=== PATIENT | male | born 1985 | race Caucasian/White ===

== ENCOUNTER 2019-09-19 12:05 | Inpatient (IN) ==
[2019-09-19] MEDS ORDERED: NS 1,000 ML IV ONE ×2 (12:30→15:01)
[2019-09-19 12:57] LABS: BASO# 0.05 X1000 (0.0-0.2); BASO% 0.3 % (0.0-0.8); HEMATOCRIT 50.9 % (42.0-52.0); HEMOGLOBIN 18.8 g/dL (14.0-18.0); IMM GRAN% 0.7 % (0.0-0.5); LYMPH# 1.26 X1000 (1.2-3.4); LYMPH% 8.5 % (20.5-51.1); MCH 30.4 PG (27-31); MCHC 36.9 g/dL (33-37); MCV 82.2 FL (81-99); MONO# 0.91 X1000 (0.11-0.59); MONO% 6.2 % (1.7-9.3); NEUT# 12.42 X1000 (1.4-6.5); NEUT% 84.3 % (42.2-75.2); PLT 198 X1000 (130-400); RBC 6.19 XMIL (4.7-6.1); RDW 14.3 % (11.5-14.5); WBC 14.74 X1000 (4.8-10.8)
[2019-09-19] MEDS ORDERED: ATIVAN ONE (13:20)
--- NOTE | 2019-09-19 13:24 | Diag Imaging Result Doc PS360 ---
EXAM: CHEST-PORTABLE INDICATION: fever TECHNIQUE: One view COMPARISON: None. FINDINGS: There is a small granuloma at the right lower lung zone. The lungs are grossly clear, otherwise. There is no discrete pleural fluid collection or pneumothorax. The cardiomediastinal silhouette and central vasculature are grossly unremarkable. IMPRESSION: No evidence of acute pathology by plain radiograph. Electronically signed by Baldemar Barnhart 09/19/2019 1:22 PM
[2019-09-19 13:29] LABS: ALBUMIN 5.2 g/dL (3.5-5.0); ALKALINE PHOSPHATASE 91 U/L (32-122); BUN 86 mg/dL (8-22); CALCIUM 9.1 mg/dL (8.8-10.2); CK PROFILE 432 U/L (24-204); COSMO 282; CREATININE 9.5 mg/dL (0.7-1.2); ESTIMATED GFR 6; GLUCOSE 244 mg/dL (70-104); GOT 33 U/L (10-34); GPT 18 U/L (10-44); TOTAL BILIRUBIN 1.44 mg/dL (0.20-1.00); TOTAL PROTEIN 7.8 g/dL (6.3-8.3)
[2019-09-19] MEDS ORDERED: ATIVAN IV ONE ×2 (13:33→16:08)
[2019-09-19 13:52] LABS: ALLEN TEST YES; BLOOD TYPE ARTERIAL; HCO3-(ACT) 31.2 mmoll (20.0-26.0); METHB 0.7 % (0.0-1.5); O2(CT) 24.3 mL/dL (15.0-23.0); O2HB 97.8 % (95.0-99.0); PCO2(98.6) 50 mmHg (35-45); PO2(98.6) 284 mmHg (60-100); SAMPLE BLOOD; SAO2 100.6 % (95.0-100.0); THB 17.2 g/dL (11.5-17.4); pH(98.6) 7.44 (7.35-7.45)
[2019-09-19 13:54] LABS: MODALITY NRB
[2019-09-19 14:11] LABS: URINE SOURCE CATH
[2019-09-19 14:17] LABS: BILIRUBIN URINE SMALL (NEGATIVE); BLOOD URINE MODERATE (NEGATIVE); COLOR ORANGE; GLUCOSE URINE TRACE mg/dL (NEGATIVE); KETONE URINE NEGATIVE (NEGATIVE); LEUKOCYTES URINE NEGATIVE (NEGATIVE); NITRITE URINE NEGATIVE (NEGATIVE); PH URINE 5.5; PROTEIN URINE 200 mg/dL (NEGATIVE); SP GRAVITY URINE 1.019; TURBIDITY URINE TURBID (CLEAR); UROBILINOGEN URINE 2 mg/dL (NORMAL)
[2019-09-19 14:40] LABS: UR AMPHETAMINES QUAL NONE DETECTED (NONE DETECT); UR BARBITUATES QUAL NONE DETECTED (NONE DETECT); UR BENZODIAZEPIN QUAL NONE DETECTED (NONE DETECT); UR CANNABINOIDS QUAL NONE DETECTED (NONE DETECT); UR COCAINE QUAL NONE DETECTED (NONE DETECT); UR METHADONE QUAL NONE DETECTED (NONE DETECT); UR OPIATES QUAL NONE DETECTED (NONE DETECT); UR OXYCODONE QUAL NONE DETECTED (NONE DETECT); UR PCP QUAL NONE DETECTED (NONE DETECT)
[2019-09-19 14:44] LABS: CHLORIDE < 60 mmol/L (98-107); CK INDEX 0.7 (0.0-2.5); CK-MB 2.84 ng/mL (0.0-5.0); POTASSIUM 2.7 mmol/L (3.5-5.1); SODIUM 123 mmol/L (136-145); TCO2 27 mmol/L (25-35)
[2019-09-19 15:01] LABS: UR EPITHELIAL CELLS <10 /HPF (<10); URINE BACTERIA NEGATIVE /HPF; URINE CASTS NONE SEEN; URINE CRYSTALS NONE SEEN; URINE SMALL ROUND CELLS NONE SEEN; URINE WBC TNTC /HPF (<10); URINE YEAST NONE SEEN
[2019-09-19 15:08] LABS: ACETAMINOPHEN < 1.2 ug/mL (10-30); SALICYLATES < 3.00 mg/dL (3-10)
[2019-09-19] MEDS ORDERED: POTASSIUM CHLORIDE 40 MEQ/SWI 40 MEQ/100 ML IVPB IV ONE (15:12)
[2019-09-19 15:27] LABS: FREE T4 1.51 ng/dL (0.93-1.70); TSH 2.78 uIUmL (0.27-4.20)
--- NOTE | 2019-09-19 15:45 | PROVIDER DOCUMENTATION ---
This chart was entered by Yolette Barnhart Scribe, acting as scribe for Sebastian Alvarado CRNP. [id number] Abuse/Overdose - General Chief Complaint: Altered Mental Status Stated Complaint: OVERDOSE Time Seen by Provider: 09/19/19 12:10 Source: EMS Allergies/Adverse Reactions: Allergies Allergy/AdvReac Type Severity Reaction Status Date / Time acetaminophen Allergy NAUSEA Verified 09/19/19 13:00 Home Medications: Home Medication List Medication Instructions Recorded Confirmed Last Taken Type NK [No Home Medications] 09/19/19 09/19/19 Unknown History - History of Present Illness-Drug/Alcohol Nature of Presenting Problem: 34 yowm presents to er w/ems w/cc OD on unk amt of delsym and ZZZQuil. 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 ems sts pt does heroin and meth, family denies drug use and pt sts has not used in "long time." pt father sts he has been taking delsym and zzzquil for 3 days, grandmother sts pt has n/v and intermittent fever, and works at [email or web address], has not left bed in 7 days. ems found empty beer and wine bottles in pt's bedroom. This episode of drinking or use began:: just prior to arrival Severity: reports: moderate Situational problems related to:: reports: N/A Psychiatric Complaints: reports: agitated, altered mental status, hostile Associated Symptoms: reports: fever/chills Any injuries associated with this episode of intoxication?: No - Substance Abuse Substance Use: reports: other (family denies pt drug use, pt sts he has not used in "long time" and ems sts pt uses heroin and meth) - Overdose List substance(s) ingested.: ZZZQuil and Delsym Review of Systems - Adult - REVIEW OF SYSTEMS - ADULT ROS:: unobtainable per condition Constitutional: reports: see HPI, fever. denies: chills, fatique Eyes: reports: no symptoms reported Ears, Nose, Mouth & Throat: reports: no symptoms reported Cardiovascular: reports: no symptoms reported Respiratory: reports: no symptoms reported Gastrointestinal: reports: no symptoms reported Genitourinary: reports: no symptoms reported Musculoskeletal: reports: no symptoms reported Integumentary: reports: no symptoms reported Neurological: reports: no symptoms reported Psychiatric: reports: see HPI, other (OD) Endocrine: reports: no symptoms reported Hematologic/Lymphatic: reports: no symptoms reported Allergic/Immunologic: reports: no symptoms reported All Other Systems: Reviewed and Negative Past History - Adult - PAST MEDICAL HISTORY-ADULT Review of Records: reports: Nursing Assessment Review, Medications Reviewed, Social history reviewed & non-contributory. Major Childhood Illnesses: reports: denies history Cardiovascular: reports: denies history Respiratory: reports: denies history Gastrointestinal: reports: denies history Obstetrical/Gynecological: reports: denies history Genitourinary: reports: denies history Musculoskeletal: reports: denies history Neurological: reports: denies history Endocrine/Immune: reports: denies history Other Conditions: reports: denies history - PRIOR SURGERIES/PROCEDURES Surgical/Procedure History: reports: none - IMMUNIZATION STATUS Childhood Immunizations: See Nurse Assessment Flu Vaccine: See Nurse Assessment - FAMILY HISTORY Family History: reviewed, not pertinent - SOCIAL HISTORY Smoking: cigarettes, greater than 1 pack/day Provider spent 3-5 mins advising pt. on dangers of tobacco.: Discussed manners to quit use, and f/u contacts for add'l counseling. Substance Use: none/never Living Situation: family (grandmother) Physical Exam-General - PHYSICAL EXAM-ADULT Initial Vital Signs Reviewed: Yes - CONSTITUTIONAL General Appearance: mild distress, thin, other (AMS). negative: appears well, alert, no apparent distress - EYES Eyes: other (bilat pupils dilated). negative: PERRL/EOMI, sclera injected, scleral icterus - HEAD, EARS, NOSE, MOUTH & THROAT HENMT: normocephalic/atraumatic, moist mucous membranes - NECK Neck: non-tender, full range of motion, supple, normal inspection - RESPIRATORY Respiratory: chest non-tender, lungs clear, normal breath sounds - CARDIOVASCULAR Cardiovascular: normal peripheral pulses, tachycardia. negative: regular rate, rhythm - GASTROINTESTINAL (ABDOMEN) Abdominal Exam: non tender, soft - MUSCULOSKELETAL Back Exam: normal inspection Extremity: normal range of motion, non-tender, normal inspection - SKIN Integumentary: normal color, normal turgor, warm/dry, ecchymosis (bruising to bilateral lower extremities) - NEUROLOGIC Neurologic: other (AMS) - PSYCHIATRIC Psych/Mental Status: disoriented x 3. negative: normal mood/affect, normal thought content, normal thought process, oriented x 3 Progress - PLAN OF CARE/RESULTS Progress/Plan/Lab Results: Vital Signs - 8 hr 09/19/19 12:22 09/19/19 13:00 09/19/19 13:15 Temperature 98.9 F Pulse Rate 125 H 109 H 117 H Respiratory Rate 16 16 20 Blood Pressure 94/70 127/111 138/100 O2 Sat by Pulse Oximetry 98 98 97 09/19/19 13:40 09/19/19 14:00 09/19/19 14:35 Temperature Pulse Rate 108 H 112 H Respiratory Rate 18 17 Blood Pressure 133/110 119/74 O2 Sat by Pulse Oximetry 99 100 100 09/19/19 15:00 09/19/19 15:30 09/19/19 16:00 Temperature Pulse Rate 114 H 121 H 125 H Respiratory Rate 20 13 21 Blood Pressure 122/107 121/106 102/97 O2 Sat by Pulse Oximetry 95 98 98 09/19/19 16:16 09/19/19 16:45 09/19/19 16:47 Temperature Pulse Rate 114 H 113 H 114 H Respiratory Rate 21 18 20 Blood Pressure 116/95 136/91 138/117 O2 Sat by Pulse Oximetry 99 100 100 09/19/19 16:57 Temperature 100.6 F H Pulse Rate Respiratory Rate Blood Pressure O2 Sat by Pulse Oximetry 09/19/19 12:53 Influenza Screen - Final Nasopharyngeal 09/19/19 12:53 Group A Strep Rapid Antigen - Final Throat Laboratory Results - last 24 hr 09/19/19 09/19/19 09/19/19 12:30 12:30 12:30 WBC RBC Hgb Hct MCV MCH MCHC RDW Std Deviation Plt Count MPV Immature Gran % (Auto) Neut % (Auto) Lymph % (Auto) [place] % (Auto) Eos % (Auto) Baso % (Auto) Immature Gran # (Auto) Neut # (Auto) Lymph # (Auto) [place] # (Auto) Eos # (Auto) Baso # (Auto) Specimen Type Sample Site pH pCO2 pO2 HCO3 Base Excess Oxyhemoglobin ABG O2 Sat (Calculated) ABG O2 Saturation ABG Carboxyhemoglobin ABG Methemoglobin Raoul Test A-a O2 Difference Total Hemoglobin Lactate Liter Flow Blood Gas Modality FiO2 % Sodium 123 L Potassium 2.7 L Chloride < 60 L Carbon Dioxide 27 Anion Gap Not Reportable BUN 86 H Creatinine 9.5 H Estimated GFR/1.73 m2 6 BUN/Creatinine Ratio 9 Glucose 244 H Calculated Osmolality 282 Calcium 9.1 Total Bilirubin 1.44 H AST 33 ALT 18 Alkaline Phosphatase 91 Creatine Kinase 432 H Creatine Kinase Index 0.7 CK-MB (CK-2) 2.84 Troponin T High Sens Total Protein 7.8 Albumin 5.2 H Globulin 2.6 Albumin/Globulin Ratio 2.0 Vitamin B12 332 TSH 2.78 Free T4 1.51 Urine Source Urine Color Urine Turbidity Urine pH Ur Specific [place] Urine Protein Ur Glucose (Stick) Ur Ketones (Stick) Urine Blood Urine Nitrite Urine Bilirubin Urobilinogen Dipstick Urine Leukocytes Urine WBC (Auto) Urine RBC (Auto) U Epithel Cells (Auto) Urine Bacteria (Auto) Urine Crystals Small Round Cells Urine Casts Urine Yeast-like Cells Salicylates Urine Opiates Screen Ur Oxycodone Screen Ur Methadone, Qual Acetaminophen Ur Barbiturates Screen Ur Phencyclidine Scrn Ur Amphetamines Screen U Benzodiazepines Scrn Urine Cocaine Screen U Cannabinoids Screen Plasma/Serum Ethyl Alc 09/19/19 09/19/19 09/19/19 12:30 12:30 12:49 WBC 14.74 H RBC 6.19 H Hgb 18.8 H Hct 50.9 MCV 82.2 MCH 30.4 MCHC 36.9 RDW Std Deviation 14.3 Plt Count 198 MPV 12.0 H Immature Gran % (Auto) 0.7 H Neut % (Auto) 84.3 H Lymph % (Auto) 8.5 L [place] % (Auto) 6.2 Eos % (Auto) 0.0 Baso % (Auto) 0.3 Immature Gran # (Auto) 0.10 H Neut # (Auto) 12.42 H Lymph # (Auto) 1.26 [place] # (Auto) 0.91 H Eos # (Auto) 0.00 Baso # (Auto) 0.05 Specimen Type Sample Site pH pCO2 pO2 HCO3 Base Excess Oxyhemoglobin ABG O2 Sat (Calculated) ABG O2 Saturation ABG Carboxyhemoglobin ABG Methemoglobin Raoul Test A-a O2 Difference Total Hemoglobin Lactate Liter Flow Blood Gas Modality FiO2 % Sodium Potassium Chloride Carbon Dioxide Anion Gap BUN Creatinine Estimated GFR/1.73 m2 BUN/Creatinine Ratio Glucose Calculated Osmolality Calcium Total Bilirubin AST ALT Alkaline Phosphatase Creatine Kinase Creatine Kinase Index CK-MB (CK-2) Troponin T High Sens 83 H Total Protein Albumin Globulin Albumin/Globulin Ratio Vitamin B12 TSH Free T4 Urine Source Urine Color Urine Turbidity Urine pH Ur Specific [place] Urine Protein Ur Glucose (Stick) Ur Ketones (Stick) Urine Blood Urine Nitrite Urine Bilirubin Urobilinogen Dipstick Urine Leukocytes Urine WBC (Auto) Urine RBC (Auto) U Epithel Cells (Auto) Urine Bacteria (Auto) Urine Crystals Small Round Cells Urine Casts Urine Yeast-like Cells Salicylates < 3.00 L Urine Opiates Screen Ur Oxycodone Screen Ur Methadone, Qual Acetaminophen < 1.2 L Ur Barbiturates Screen Ur Phencyclidine Scrn Ur Amphetamines Screen U Benzodiazepines Scrn Urine Cocaine Screen U Cannabinoids Screen Plasma/Serum Ethyl Alc 09/19/19 09/19/19 09/19/19 13:35 13:35 13:43 WBC RBC Hgb Hct MCV MCH MCHC RDW Std Deviation Plt Count MPV Immature Gran % (Auto) Neut % (Auto) Lymph % (Auto) [place] % (Auto) Eos % (Auto) Baso % (Auto) Immature Gran # (Auto) Neut # (Auto) Lymph # (Auto) [place] # (Auto) Eos # (Auto) Baso # (Auto) Specimen Type ARTERIAL Sample Site R RADIAL pH 7.44 pCO2 50 H pO2 284 H HCO3 31.2 H Base Excess 8.0 H Oxyhemoglobin 97.8 ABG O2 Sat (Calculated) 24.3 H ABG O2 Saturation 100.6 H ABG Carboxyhemoglobin 2.10 ABG Methemoglobin 0.7 Raoul Test YES A-a O2 Difference 367.0 Total Hemoglobin 17.2 Lactate 13.20 H* Liter Flow 15.0 Blood Gas Modality NRB FiO2 % 100.0 Sodium Potassium Chloride Carbon Dioxide Anion Gap BUN Creatinine Estimated GFR/1.73 m2 BUN/Creatinine Ratio Glucose Calculated Osmolality Calcium Total Bilirubin AST ALT Alkaline Phosphatase Creatine Kinase Creatine Kinase Index CK-MB (CK-2) Troponin T High Sens Total Protein Albumin Globulin Albumin/Globulin Ratio Vitamin B12 TSH Free T4 Urine Source CATH Urine Color ORANGE Urine Turbidity TURBID Urine pH 5.5 Ur Specific [place] 1.019 Urine Protein 200 A Ur Glucose (Stick) TRACE Ur Ketones (Stick) NEGATIVE Urine Blood MODERATE A Urine Nitrite NEGATIVE Urine Bilirubin SMALL A Urobilinogen Dipstick 2 A Urine Leukocytes NEGATIVE Urine WBC (Auto) TNTC A Urine RBC (Auto) 10-20 A U Epithel Cells (Auto) <10 Urine Bacteria (Auto) NEGATIVE Urine Crystals NONE SEEN Small Round Cells NONE SEEN Urine Casts NONE SEEN Urine Yeast-like Cells NONE SEEN Salicylates Urine Opiates Screen NONE DETECTED Ur Oxycodone Screen NONE DETECTED Ur Methadone, Qual NONE DETECTED Acetaminophen Ur Barbiturates Screen NONE DETECTED Ur Phencyclidine Scrn NONE DETECTED Ur Amphetamines Screen NONE DETECTED U Benzodiazepines Scrn NONE DETECTED Urine Cocaine Screen NONE DETECTED U Cannabinoids Screen NONE DETECTED Plasma/Serum Ethyl Alc 09/19/19 17:36 WBC RBC Hgb Hct MCV MCH MCHC RDW Std Deviation Plt Count MPV Immature Gran % (Auto) Neut % (Auto) Lymph % (Auto) [place] % (Auto) Eos % (Auto) Baso % (Auto) Immature Gran # (Auto) Neut # (Auto) Lymph # (Auto) [place] # (Auto) Eos # (Auto) Baso # (Auto) Specimen Type ARTERIAL Sample Site R BRACHIAL pH 7.49 H pCO2 58 H* pO2 87 HCO3 38.2 H Base Excess 17.1 H Oxyhemoglobin 95.1 ABG O2 Sat (Calculated) 22.1 ABG O2 Saturation 98.4 ABG Carboxyhemoglobin 2.20 ABG Methemoglobin 1.2 Raoul Test NO A-a O2 Difference 40.0 Total Hemoglobin 16.5 Lactate 1.90 Liter Flow 2.0 Blood Gas Modality CANNULA FiO2 % 28.0 Sodium Potassium Chloride Carbon Dioxide Anion Gap BUN Creatinine Estimated GFR/1.73 m2 BUN/Creatinine Ratio Glucose Calculated Osmolality Calcium Total Bilirubin AST ALT Alkaline Phosphatase Creatine Kinase Creatine Kinase Index CK-MB (CK-2) Troponin T High Sens Total Protein Albumin Globulin Albumin/Globulin Ratio Vitamin B12 TSH Free T4 Urine Source Urine Color Urine Turbidity Urine pH Ur Specific [place] Urine Protein Ur Glucose (Stick) Ur Ketones (Stick) Urine Blood Urine Nitrite Urine Bilirubin Urobilinogen Dipstick Urine Leukocytes Urine WBC (Auto) Urine RBC (Auto) U Epithel Cells (Auto) Urine Bacteria (Auto) Urine Crystals Small Round Cells Urine Casts Urine Yeast-like Cells Salicylates Urine Opiates Screen Ur Oxycodone Screen Ur Methadone, Qual Acetaminophen Ur Barbiturates Screen Ur Phencyclidine Scrn Ur Amphetamines Screen U Benzodiazepines Scrn Urine Cocaine Screen U Cannabinoids Screen Plasma/Serum Ethyl Alc Orders Category Date Time Status Admit - [facility] Routine AdmDCTranf 09/19/19 18:25 Active Tse Cath Insertion ORDERED Care 09/19/19 13:38 Active NEWS Score 2-4:Order NEWS Lactate Series NOW Care 09/19/19 12:43 Active Nursing- MD Consult Request ROUTINE Care 09/19/19 16:34 Active Restraint Initiate NonViolent ONCE Care 09/19/19 16:11 Active Use Oxygen.Protocol ORDERED Care 09/19/19 13:33 Active MD [Physician/Provider Consults] Routine Cons 09/19/19 16:34 Ordered NPO Diet 09/19/19 18:26 Active CHEST-PORTABLE [RAD] Stat Exams 09/19/19 12:[address] ABDOMEN/PELVIS W/O CONTRAST [CT] Stat Exams 09/19/19 16:[address] HEAD W/O CONTRAST [CT] Stat Exams 09/19/19 15:43 Completed ABG [RESP] Routine Lab 09/19/19 13:43 Completed ABG [RESP] Routine Lab 09/19/19 17:36 Completed ABG [RESP] Routine Lab 09/20/19 06:00 Ordered ACETAMINOPHEN [TDM] Lab 09/19/19 18:24 Ordered ACETAMINOPHEN [TDM] Lab 09/19/19 19:30 Uncollected ACETAMINOPHEN [TDM] Lab 09/19/19 23:30 Uncollected ACETAMINOPHEN [TDM] Stat Lab 09/19/19 12:49 Completed ALCOHOL BLOOD Stat Lab 09/19/19 12:30 Completed BLOOD CULTURE [BLDCUL] Stat Lab 09/19/19 13:15 Results CBC WITH ELECTRONIC DIFF [HEME] Stat Lab 09/19/19 12:30 Completed CBC WITH NO DIFF [HEME] DAILY Lab 09/20/19 06:00 Uncollected CBC WITH NO DIFF [HEME] DAILY Lab 09/21/19 06:00 Uncollected CBC WITH NO DIFF [HEME] DAILY Lab 09/22/19 06:00 Uncollected CBC WITH NO DIFF [HEME] DAILY Lab 09/23/19 06:00 Uncollected CBC WITH NO DIFF [HEME] DAILY Lab 09/24/19 06:00 Uncollected CK PROFILE [SP CHEM] Stat Lab 09/19/19 12:30 Completed COMPREHENSIVE METABOLIC PANEL [CHEM] Stat Lab 09/19/19 12:30 Completed DIRECT STREP Stat Lab 09/19/19 12:53 Completed ETHYLENE GLYCOL [ROBLES] Stat Lab 09/19/19 15:15 Ordered FREE T4 Stat Lab 09/19/19 12:30 Completed INFLUENZA SCREEN A/B Stat Lab 09/19/19 12:53 Completed LACTATE, PLASMA [CHEM] Lab 09/19/19 13:47 Ordered LACTATE, PLASMA [CHEM] Lab 09/19/19 18:24 Ordered LACTATE, PLASMA [CHEM] Lab 09/19/19 19:00 Uncollected MAGNESIUM [CHEM] Stat Lab 09/19/19 16:46 Ordered PHOSPHORUS [CHEM] Stat Lab 09/19/19 15:12 Ordered RENAL PROFILE [CHEM] DAILY Lab 09/20/19 06:00 Uncollected RENAL PROFILE [CHEM] DAILY Lab 09/21/19 06:00 Uncollected RENAL PROFILE [CHEM] DAILY Lab 09/22/19 06:00 Uncollected RENAL PROFILE [CHEM] DAILY Lab 09/23/19 06:00 Uncollected RENAL PROFILE [CHEM] DAILY Lab 09/24/19 06:00 Uncollected RENAL PROFILE [CHEM] Stat Lab 09/19/19 17:00 Ordered SALICYLATES [TDM] Stat Lab 09/19/19 12:49 Completed SERUM OSMOLALITY [CHEM] Stat Lab 09/19/19 15:44 Ordered SERUM OSMOLALITY [CHEM] Stat Lab 09/19/19 17:21 Ordered TROPONIN T HIGH SENSITIVITY Stat Lab 09/19/19 12:30 Completed TSH Stat Lab 09/19/19 12:30 Completed UR CREAT RANDOM [URCHEM] Routine Lab 09/19/19 17:21 Ordered UR PROT RANDOM [URCHEM] Routine Lab 09/19/19 17:21 Ordered UR SODIUM [URCHEM] Routine Lab 09/19/19 17:21 Ordered URINALYSIS W/POSS RFLX CULT [URINALYSIS] Stat Lab 09/19/19 13:35 Completed URINALYSIS [URINALYSIS] Routine Lab 09/19/19 17:21 Ordered URINE CULTURE [RM] Routine Lab 09/19/19 15:23 Received URINE DRUG SCREEN Stat Lab 09/19/19 13:35 Completed URINE MANUAL MICROSCOPIC [URINALYSIS] Stat Lab 09/19/19 13:35 Completed VITAMIN B12 Stat Lab 09/19/19 12:30 Completed 0.9% Sodium Chloride Inj [Ns] 1,000 ml Med 09/19/19 18:30 Active IV 150 mls/hr 0.9% Sodium Chloride Inj [Ns] 1,000 ml Med 09/19/19 12:30 Discontinued IV 999 mls/hr 0.9% Sodium Chloride Inj [Ns] 1,000 ml Med 09/19/19 15:01 Discontinued IV 999 mls/hr Albuterol 2.5MG/Ipratrop 0.5MG [Duoneb (A & A)] Med 09/19/19 18:25 Active 3 ml INH Q2H PRN PRN Labetalol Med 09/19/19 17:58 Discontinued 5 mg IV NOW ONE Lorazepam [Ativan] Med 09/19/19 13:20 Discontinued 2 mg .ROUTE .STK-MED ONE Lorazepam [Ativan] Med 09/19/19 13:33 Discontinued 2 mg IV NOW ONE Lorazepam [Ativan] Med 09/19/19 16:08 Discontinued 2 mg IV NOW ONE Ondansetron [Zofran] Med 09/19/19 18:25 Active 4 mg IV Q4H PRN PRN Potassium Chloride 20 Meq/Swi Med 09/19/19 16:00 Active 20 meq in 100 ml IV Q2H Aerosol Treatments Routine Oth 09/19/19 18:25 Active Seizure, New Onset Stat Oth 09/19/19 13:34 Ordered EKG [EKG] Stat Ther 09/19/19 12:28 Ordered Transfer/Admit Order [TRANSFER] Routine Transfer 09/19/19 18:19 Ordered 1530: Father was updated on patient's condition. He verbalizes an understanding of pending admission. He understands we will continue to update as new results come in. Result Diagrams: 09/19/19 12:30 09/19/19 12:30 - REASSESSMENT Reassessment #1 Time Reassessed: 13:15 Status: worsening (RN reports pt having seizure in room lasting 40 seconds, seizure resolved, postictal for 1 hr and agonally breathing.) Reassessment #2 Time Reassessed: 15:11 Status: worsening (poison control called and sts that pt possibly ingested antifreeze due to lab results. MILK [employer]ER to call hospitalist to admit pt to ICU.) Reassessment #3 Time Reassessed: 15:26 Status: other (MILK [employer]ER contacted pt's father and sts that he took 5 gallon bucket of vomit out of pt's bedroom today, sts pt goes into the man with people, unsure of what he could have possibly ingested while with these people.) - EKG 1 Time of EKG reading by physician:: 12:48 EKG Read and Signed by:: Bhavin Mccartney EKG Interpretation (*Must complete 3 of following elements*): Abnormal Rate: 123 (YUSEF ) Rhythm: sinus tachycardia [place]: right ST Wave: non-specific ST changes (marked ST abnormality, possible inferior subendocardial injury) Comments: Pulmonary Dz pattern - XRAY 1 XRAY Study: Chest Impression: See EMR Report ( EXAM: CHEST-PORTABLE INDICATION: fever TECHNIQUE: One view COMPARISON: None. FINDINGS: There is a small granuloma at the right lower lung zone. The lungs are grossly clear, otherwise. There is no discrete pleural fluid collection or pneumothorax. The cardiomediastinal silhouette and central vasculature are grossly unremarkable. IMPRESSION: No evidence of acute pathology by plain radiograph. Electronically signed by Baldemar Barnhart 09/19/2019 1:22 PM) - CT/MRI 1 CT Study: Head Impression: Abnormal, See EMR Report (EXAM: CT HEAD W/O CONTRAST INDICATION: seizure/ams TECHNIQUE: This exam was performed using automated exposure control, adjustment of mA or kV according to patient size, and/or use of iterative reconstruction technique. COMPARISON: None. FINDINGS: There is an overall small volume of acute blood at the anterior aspect of the frontal lobes bilaterally, more on the right. There is also a small amount anterior to the left temporal lobe. Most of this blood appears to be layering in sulci indicating subarachnoid blood. There is at least some subdural blood tracking along the anterior falx. There is no mass effect appreciated. There is no hydrocephalus and no evidence of acute ischemic infarct. The surrounding soft tissues and bony structures are essentially unremarkable. The calvaria is intact. IMPRESSION: Small amount of acute blood at the anterior aspect of the frontal lobes and predominantly on the right. Most of this appears to be subara chnoid blood. Consider a hemorrhagic contusion. Electronically signed by Baldemar Barnhart 09/19/2019 4:53 PM) Comparison with other Films: no prior study 2 CT Study: Abdomen, Pelvis Impression: Normal, See EMR Report ( EXAM: CT ABDOMEN/PELVIS W/O CONTRAST INDICATION: NV TECHNIQUE: This exam was performed using automated exposure control, adjustment of mA or kV according to patient size, and/or use of iterative reconstruction technique. COMPARISON: 05/06/2016 FINDINGS: There is a calcified granuloma in the right lower lobe. The liver, gallbladder, spleen, pancreas, adrenal glands, and kidneys are grossly unremarkable by unenhanced CT. There is a Tse catheter in the urinary bladder and the bladder is largely nondistended. The appendix is normal. There is no focal bowel wall thickening or bowel obstruction. The remainder of the GI tract is essentially unremarkable. No focal inflammatory changes, free abdominal gas, or free fluid is identified. There is no evidence of acute osseous abnormality. IMPRESSION: No evidence of acute pathology by unenhanced CT. Electronically signed by Baldemar Barnhart 09/19/2019 4:58 PM) - CONSULTS/PCP/HOSPITALIST Notification #1 *Consult/PCP/Hospitalist*: Sola....Dr Minor Time Discussed: 15:20 Consult Disposition: Admit (consult nephrology 1820: Dr Minor was called> reported Neurosurgery recommendations. Hospitalists here will accept.) #2 Consult: Dr Dias Time Discussed: 16:08 Reason/Comments: ARF Consult Disposition: other (will consult) #3 Consult: Dr Grewal, Neurosurgery Time Discussed: 18:15 Reason/Comments: subarachnoid hemmorrhage Consult Disposition: other ( reports that scans do not indicate that bleed is acute but likely 5 days old. Transfer is not needed at this time.) Departure - Departure Date of Disposition Decision: 09/19/19 Time of Disposition Decision: 18:20 DIAGNOSIS: Subarachnoid bleed Overdose Qualifiers: Encounter type: initial encounter Injury intent: undetermined intent Qualified Code(s): T50.904A - Poisoning by unspecified drugs, medicaments and biological substances, undetermined, initial encounter Acute renal failure (ARF) Qualifiers: Acute renal failure type: unspecified Qualified Code(s): N17.9 - Acute kidney failure, unspecified Disposition: ADMITTED INPATIENT 09 Certified Medical Emergency: Emergent Condition: Critical Referrals and Follow-Ups: None,PCP [Primary Care Provider] - - Critical Care Note This patient required my direct & personal management of CC.: Yes Total Time (mins): 119 Critical Care Statement: This patient required my direct personal management to treat or rule out processes, the absence of which, could potentiallly result in sudden, clinically significant life or limb threatening deterioration. Attestation - Physician/ STEFF Attestation Patient care was provided by Advanced Practice Provider:: Yes Advanced Practice Provider:: Sebastian Alvarado Advanced Practice Provider documentation review:: The Mid-level provider d ocumentation, treatment plan and medical decision making was reviewed by the physician who agrees with all treatment and medical decision making by the MLP. The physician spent face to face time with patient:: Yes (Dr Mccartney) Advanced Practice Provider documentation review:: Supervising physician onsite and consulted in the evaluation and care of this patient. The physician did have a face to face encounter with the patient. This chart was documented by the indicated scribe, (Yolette Barnhart, Sukhjinder) and accurately reflects the services I performed and decisions made by Jenny acosta Reagan R., CRNP, as attested by the provider's signature.
[2019-09-19] MEDS: POTASSIUM CHLORIDE 20 MEQ/SWI 20 MEQ/100 ML IVPB IV SCH ×2 (16:48→18:58)
--- NOTE | 2019-09-19 16:56 | Diag Imaging Result Doc PS360 ---
EXAM: CT HEAD W/O CONTRAST INDICATION: seizure/ams TECHNIQUE: This exam was performed using automated exposure control, adjustment of mA or kV according to patient size, and/or use of iterative reconstruction technique. COMPARISON: None. FINDINGS: There is an overall small volume of acute blood at the anterior aspect of the frontal lobes bilaterally, more on the right. There is also a small amount anterior to the left temporal lobe. Most of this blood appears to be layering in sulci indicating subarachnoid blood. There is at least some subdural blood tracking along the anterior falx. There is no mass effect appreciated. There is no hydrocephalus and no evidence of acute ischemic infarct. The surrounding soft tissues and bony structures are essentially unremarkable. The calvaria is intact. IMPRESSION: Small amount of acute blood at the anterior aspect of the frontal lobes and predominantly on the right. Most of this appears to be subarachnoid blood. Consider a hemorrhagic contusion. Electronically signed by Baldemar Barnhart 09/19/2019 4:53 PM
--- NOTE | 2019-09-19 17:00 | Diag Imaging Result Doc PS360 ---
EXAM: CT ABDOMEN/PELVIS W/O CONTRAST INDICATION: NV TECHNIQUE: This exam was performed using automated exposure control, adjustment of mA or kV according to patient size, and/or use of iterative reconstruction technique. COMPARISON: 05/06/2016 FINDINGS: There is a calcified granuloma in the right lower lobe. The liver, gallbladder, spleen, pancreas, adrenal glands, and kidneys are grossly unremarkable by unenhanced CT. There is a Tse catheter in the urinary bladder and the bladder is largely nondistended. The appendix is normal. There is no focal bowel wall thickening or bowel obstruction. The remainder of the GI tract is essentially unremarkable. No focal inflammatory changes, free abdominal gas, or free fluid is identified. There is no evidence of acute osseous abnormality. IMPRESSION: No evidence of acute pathology by unenhanced CT. Electronically signed by Baldemar Barnhart 09/19/2019 4:58 PM
[2019-09-19 17:47] LABS: ALLEN TEST NO; BE 17.1 mmoll (-3.0-3.0); BLOOD TYPE ARTERIAL; HCO3-(ACT) 38.2 mmoll (20.0-26.0); METHB 1.2 % (0.0-1.5); O2(CT) 22.1 mL/dL (15.0-23.0); O2HB 95.1 % (95.0-99.0); PO2(98.6) 87 mmHg (60-100); SAMPLE BLOOD; SAO2 98.4 % (95.0-100.0); THB 16.5 g/dL (11.5-17.4); pH(98.6) 7.49 (7.35-7.45)
[2019-09-19 17:52] LABS: MODALITY CANNULA; PCO2(98.6) 58 mmHg (35-45)
--- NOTE | 2019-09-19 17:55 | NEPHROLOGY CONSULTATION ---
DATE: 09/19/2019 REASON FOR CONSULTATION: Acute kidney injury and metabolic acidosis. HISTORY OF PRESENT ILLNESS: Mr. Bryatn is a 34-year-old, white male. For him, I have very little history. The initial note indicates that the patient was altered, irate, aggressive. Notes indicate that he was isolated in his room for several days. He took Delsym ZzzQuil. It is not clear how much and how rapidly. No other known ingestions. Notes indicate that he had nausea vomiting and intermittent fever. and has been in the bed for 7 days. Alcohol intake was present but it is not clear as to the timing. His blood alcohol level was negative. Other notes indicate possible heroin and meth amphetamine use. At any rate, he is not able to provide any history at this time. PAST MEDICAL HISTORY: None aside from above. No home medicines. ALLERGIES: Acetaminophen. SOCIAL HISTORY: As above. FAMILY HISTORY.: Not obtainable. REVIEW OF SYSTEMS: Not obtainable. PHYSICAL EXAMINATION: Vital Signs: Blood pressure 138/117, heart rate 114, respirations 20, temperature 100.6 degrees. Generally: He is a young man lying on his back. He is groaning, but does not open his eyes or respond to any verbal or tactile stimuli. Skin: Warm and dry. Feels somewhat warmer than normal. Skin is again warm centrally, but cool peripherally and there is mottling over the knees. HEENT: Pupils are equal and reactive. Conjunctivae are pink. Oropharynx is not examined. Neck: Not rigid. Trachea is midline. Neck veins are not distended. Heart: PMI nonpalpable. Heart: Regular, tachycardic. No gallops, murmurs, rubs. Lungs: Have equal excursion equal breath sounds. Sonorous and he is verbalizing or intonating, so it is difficult to hear, but no crackles or wheezes are audible. Abdomen: Scaphoid and soft. Bowel sounds are present. No organomegaly, masses, tenderness, etc. Extremities: No edema. Distal pulses are not palpable in the feet. LABORATORIES: Labs are a bit discordant. ABG finds lactate of 13, but his serum bicarbonate was 31 with a pCO2 50 and pH is 7.44. Chemistries indicate and markedly low serum chloride as well as significant hyponatremia and hypokalemia. Anion gap could not be calculated because chloride less than 60. CT of the brain indicates probable subarachnoid blood. Urine with heavy protein and blood and white cells. Chest x-ray is not revealing and CT abdomen is not revealing. IMPRESSION: Acute kidney injury with metabolic acidosis. Not clear to me if all this is related to lactic acidosis and volume contraction or could he possibly have an ingestion. I will repeat his chemistries, measure serum osmolality, and ABG now and follow up on those results. If we have no other clear indication for the cause of his metabolic acidosis, he may require dialysis today. In the interim, I agree with volume expansion with normal saline. He has received 1 L of normal saline and is currently receiving the 2nd. Further fluid orders pending. Focus on BP management. Repeat lab results. We will follow with you. cc: Maikel Bonilla MD [facility]
[2019-09-19] MEDS ORDERED: LABETALOL IV ONE (17:58)
[2019-09-19] MEDS ORDERED: ZOFRAN IV PRN (18:25)
[2019-09-19] MEDS ORDERED: DUONEB (A & A) INH PRN (18:25)
[2019-09-19] MEDS ORDERED: ATIVAN IV PRN (18:26)
[2019-09-19] MEDS ORDERED: KEPPRA 250 MG in NS 100 ML IV ONE (18:30)
[2019-09-19] MEDS: NS 1,000 ML IV SCH (18:57)
[2019-09-19 18:59] LABS: UR PROT RANDOM 192.3 mg/dL
[2019-09-19 19:07] LABS: UR CREAT RANDOM 234.1 mg/dL (14-26)
--- NOTE | 2019-09-19 19:29 | HISTORY AND PHYSICAL ---
PRIMARY CARE PROVIDER: No one. HISTORY OF PRESENT ILLNESS: According to the triage note, it was reported that he took an unknown amount of NyQuil and Benadryl, was combative when EMS arrived to the ED and he told EMS that he takes heroin. Reviewing the emergency room note, it is reported that he overdosed on an unknown amount of Delsym and ZzzQuil. Very aggressive, very agitated. Told EMS he takes heroin and methamphetamine but the family denies drug use. The patient stated that he has not used in a long time but the father says he has been taking it for 3 days, Delsym and ZzzQuil. The grandmother states that he has had nausea and vomiting with intermittent fever. Works at [employer]. Has not left his bed in 7 days. EMS apparently found empty beer and wine bottles in his room. After he got here, then he developed a seizure that lasted for 40 seconds. He was given Ativan. He was sent for a head CT that shows subarachnoid hemorrhage bilaterally, right greater than left. Then laboratory came back showing that he has significant acute kidney injury. They also consulted with Poison Control who has concern of antifreeze possibly due to the kidney dysfunction that is associated with it so that lab has also been sent. He has significant lactic acidosis, which is probably a seizure. Whatever it is he took medication-wen has made him this sick. It is also reported that he had at least a 5 gallon bucket worth of vomit and then after his seizure, he had vomited. It was coffee brown, so he had a CT of his abdomen and pelvis performed as well. That did not show anything acute. He was, at one point, placed on 100% nonrebreather because he was hypoxic post seizure but recovered from that. Dr. Bonilla has been notified. That also consulted with neurosurgery from [facility] who states that the subarachnoid hemorrhage is old and they refused to take him as a transfer. PAST MEDICAL HISTORY: Unknown. SURGICAL HISTORY: Unknown. SOCIAL HISTORY: Unknown but it is stated in the ER physician's notes that he admits to heroin and methamphetamine, and that there were empty beer or wine bottles in his room. FAMILY HISTORY: Unknown. ALLERGIES: Tylenol is listed, apparently it causes nausea. HOME MEDICATIONS: None. REVIEW OF SYSTEMS: Unable to obtain. PHYSICAL EXAMINATION: VITAL SIGNS: Temperature 100.6 degrees, heart rate 114, respiratory rate 20, blood pressure 138/117, O2 saturation 100% on 2 L nasal cannula. GENERAL: Mr. Jt Bryant is a 34-year-old, male and he is obtunded. HEENT: Normocephalic, atraumatic. There is no bruising, nothing wrong with his head despite the report of the subarachnoid hemorrhage. Pupils are equal. They are reactive. They are at least a 5. NECK: Trachea midline. CARDIOVASCULAR: S1, S2. Tachycardic rate and rhythm. No rubs, gallops, or murmurs. No lower extremity edema. There are +2 dorsalis and radial pulses. Negative JVD or carotid bruits. PULMONARY: Clear to auscultate bilateral breath sounds. No accessory muscle use or work of breathing noted. GI: Soft. Hypoactive bowel sounds. EXTREMITIES: Some spontaneous noted bilaterally in both extremities. Unable to assess for strength equality. NEUROLOGIC: Again, he is obtunded and did not follow commands. SKIN: Warm, dry, intact. LABORATORY DATA: White blood cells 14,000, hemoglobin 8, hematocrit 50, platelet count 198,000. ABGs on 2 L nasal cannula, pH 7.49, pCO2 of 58, PO2 of 87, bicarb 38, base excess 17, saturation 95%. Lactate is down to 1.9 cm. The original was 13.2. Sodium 123, potassium 2.7, BUN 86, creatinine is 9.5, glucose 244 and repeat was 142, calcium 9.1. Bilirubin is 1.44, AST 33, ALT 18. CK 432, troponin 83. Albumin 5.2. Vitamin B12 of 332. TSH is 2.78, free T4 is 1.51. Urinalysis, 200 urine protein, moderate blood, small urine bilirubin, 2 urobilinogen dipstick, too- [id number] white blood cells, but negative leukocytes, 10 to 20 red blood cells, negative bacteria in the urine, negative for yeast. Salicylate less than 3. Acetaminophen less than 1.2. Urine drug screen negative. Alcohol zero. IMAGING: Chest x-ray negative for any acute findings. Head CT, small amount of blood at the anterior aspect of the frontal lobes and predominantly on the right. Most of this appears to be a subarachnoid bleed. Consider a hemorrhagic contusion. Anyway, this is a subarachnoid hemorrhage, right greater than left. Abdominal and pelvic CT, no evidence of acute findings. There is a granuloma in the right lower lobe of the lung. He has a Tse catheter in his bladder. ASSESSMENT AND PLAN: 1. Overdose of unknown substance. It is reported as ZzzQuil, Benadryl, or Unisom which has, in turn, caused his kidney function to fail. Poison Control was concerned for antifreeze overdose, even though it was not found around him and so that lab has been sent off. The ethylene glycol levels have been sent to the [facility]. 2. Subarachnoid hemorrhage, right greater than left. There was concern as to whether it was traumatic but there was no obvious outside signs of trauma to the head. This was reported to neurosurgery at [facility] who said that this is an old subarachnoid hemorrhage and they refused to accept him for transfer, so he will be sent to the intensive care unit for closer observation. We will also do another repeat head CT tomorrow to evaluate if it is extending or continuing to bleed. He will have neurological checks. 3. New onset seizure, likely secondary to subarachnoid hemorrhage. We will go ahead and do renally dosed Keppra at 250 mg intravenously every 12 hours. We will do as-needed Ativan. 4. Reported vomiting. Abdominal and pelvic CT was normal. It was most likely from toxication. 5. Acute kidney injury, most likely drug-induced. Dr. Bonilla has been consulted. He has metabolic acidosis with this but we will go ahead and do some intravenous fluid hydration. There has been a serum osmolality that was ordered and it is possible that he may require dialysis today, according to his note, but agrees with volume expansion by normal saline. He has already received 2 L of fluid. We are going to do saline at 150 mL an hour. He has got a renal ultrasound ordered and urine labs ordered. 6. Transient respiratory failure. During his seizure, he became hypoxic ands required a 100% nonrebreather. He is back down to 2 L nasal cannula and is stable with that. 7. Leukocytosis with a fever. Currently, source is unknown. He also had some lactic acidosis with it so we will do broad-spectrum antibiotics which include renally dosed Zosyn. We will add Zyvox as well. We will follow up on blood culture. He does have a verbal report apparently when he came in of admitting to heroin and methamphetamines. However, drug screen was negative. He is getting intravenous fluid hydration. His second lactate was normal. 8. Lactic acidosis, most likely from the seizure he had. It could be infection related or dehydration; however, it is resolved now. 9. Possible alcohol abuse. There were reported empty beer and wine bottles in his room. The alcohol level was negative. 10. Questionable suicide attempt. Given the fact that there is report that he had lots of ZzzQuil, Delsym, alcohol, and maybe even antifreeze, he is high risk. He will need to be evaluated once he can actually wake up, depending on how well he does post subarachnoid hemorrhage recovery. 11. Deep venous thrombosis prophylaxis. Sequential compression devices. 12. Hyponatremia. Getting intravenous fluid hydration with saline. 13. Hypokalemia. Getting a total of 40 mEq of potassium. 14. Hyperglycemia, most likely stress-induced. 15. Hyperbilirubinemia, possibly from alcohol. Dictated by CRALOS Perea for Clarence Minor MD cc: CARLOS Perea
[2019-09-19 19:33] LABS: CALCIUM 7.4 mg/dL (8.8-10.2); CREATININE 7.6 mg/dL (0.7-1.2); PHOSPHORUS 6.9 mg/dL (2.7-4.5); POTASSIUM 2.8 mmol/L (3.5-5.1)
[2019-09-19] MEDS: ZOSYN 2.25 GM in NS 50 ML IV SCH (21:00)
[2019-09-19] MEDS: ZYVOX 600 MG/D5W 600 MG/300 ML IVPB IV SCH (22:24)
--- NOTE | 2019-09-20 01:56 | EKG Report ---
Test Performed on : 09/20/2019 00:34:00 AM Test Reason : per poison control Blood Pressure : / mmHG Vent. Rate : 080 BPM Atrial Rate : 080 BPM P-R Int : 128 ms QRS Dur : 094 ms QT Int : 498 ms P-R-T Axes : 067 079 070 degrees QTc Int : 574 ms Critical Test Result: Long QTc Normal sinus rhythm. Normal ECG When compared with ECG of - Rate has decreased by 43 beats per minute. Right atrial enlargement, right axis, and ST abnormalities are no longer present. Confirmed by Bobby Dudley MD ([id number]) on 09/21/2019 1:33:05 PM
[2019-09-20] MEDS: NS 1,000 ML IV SCH ×4 (02:14→23:54)
[2019-09-20] MEDS: ZOSYN 2.25 GM in NS 50 ML IV SCH ×3 (02:16→20:19)
[2019-09-20 05:21] LABS: ALLEN TEST YES; BE 14.2 mmoll (-3.0-3.0); BLOOD TYPE ARTERIAL; HCO3-(ACT) 35.9 mmoll (20.0-26.0); METHB 1.6 % (0.0-1.5); O2(CT) 25.5 mL/dL (15.0-23.0); O2HB 96.1 % (95.0-99.0); PO2(98.6) 138 mmHg (60-100); SAMPLE BLOOD; SAO2 99.4 % (95.0-100.0); THB 18.8 g/dL (11.5-17.4)
--- NOTE | 2019-09-20 05:26 | EKG Report ---
Test Performed on : 09/20/2019 04:54:49 AM Test Reason : per poison control Blood Pressure : / mmHG Vent. Rate : 076 BPM Atrial Rate : 076 BPM P-R Int : 128 ms QRS Dur : 096 ms QT Int : 512 ms P-R-T Axes : 065 068 069 degrees QTc Int : 576 ms Critical Test Result: Long QTc Normal sinus rhythm. Prolonged QT Abnormal ECG When compared with ECG of 20-SEP-2019 00:34, (Unconfirmed) No significant change was found Confirmed by Bobby Dudley MD ([id number]) on 09/21/2019 1:46:00 PM
[2019-09-20 05:54] LABS: MODALITY CANNULA; PCO2(98.6) 52 mmHg (35-45)
[2019-09-20 06:29] LABS: ALB/GLOB RATIO 1.3; ALBUMIN 3.2 g/dL (3.5-5.0); CALCIUM 7.9 mg/dL (8.8-10.2); CREATININE 4.6 mg/dL (0.7-1.2); MAGNESIUM 2.7 mg/dL (1.5-2.7); PHOSPHORUS 4.9 mg/dL (2.7-4.5); POTASSIUM 2.6 mmol/L (3.5-5.1); TOTAL BILIRUBIN 1.21 mg/dL (0.20-1.00); TOTAL PROTEIN 5.6 g/dL (6.3-8.3)
--- NOTE | 2019-09-20 07:27 | SEPSIS: TISSUE PERFUSION ASSMT ---
Sepsis: Tissue Perfusion Assmt - Physical Exam Assessment Date: 09/20/19 Time Assessment Initialized: 07:00 Vital Signs: Last Vital Signs Temp 98.8 F 09/20/19 04:45 Pulse 79 09/20/19 06:32 Resp 16 09/20/19 06:32 BP 133/87 09/20/19 06:32 Pulse Ox 100 09/20/19 06:32 Height 5 ft 11 in Weight 61.643 kg Lung Sounds: lungs clear Heart Sounds: Regular Capillary Refill Time: Less Than 2 Seconds Peripheral Pulse Evaluation: radial (R): 2+, radial (L): 2+, dorsalis-pedis (R): 2+, dorsalis-pedis (L): 2+, posterior tibialis (R): 2+, posterior tibialis (L): 2+ Skin Exam: pink - Alternative Fluid Bolus Bolus Option: Alternative Fluid Resuscitation Bolus for morbidly obese patients with a BMI >30, Refer to [facility] [place] Body Weight Chart for Reference. Is patient's BMI >30?: No Fluid Bolus dosed using the [place] Body Weight Chart: No - Impression Impression: Tissue Perfusion Adequate (Patient has already been on continuous IV fluids. Boluses were given in ER.)
--- NOTE | 2019-09-20 07:30 | EKG Report ---
Test Performed on : 09/20/2019 07:06:29 AM Test Reason : chest pain Blood Pressure : / mmHG Vent. Rate : 089 BPM Atrial Rate : 089 BPM P-R Int : 130 ms QRS Dur : 094 ms QT Int : 486 ms P-R-T Axes : 073 076 049 degrees QTc Int : 591 ms Normal sinus rhythm. Prolonged QT Abnormal ECG When compared with ECG of 20-SEP-2019 04:54, (Unconfirmed) No significant change was found Confirmed by Bobby Dudley MD ([id number]) on 09/21/2019 1:49:16 PM
--- NOTE | 2019-09-20 07:40 | Diag Imaging Result Doc PS360 ---
EXAM: CHEST-PORTABLE HISTORY: hypoxia TECHNIQUE: Single view COMPARISON: 09/19/2019 FINDINGS: The lungs are well expanded. The heart is not enlarged. The vessels are not distended. There are no infiltrates. No effusion identified. IMPRESSION: Negative exam. Electronically signed by Quan Lyles 09/20/2019 7:38 AM
--- NOTE | 2019-09-20 07:52 | EKG Report ---
Test Performed on : 09/19/2019 12:48:56 PM Test Reason : CP Blood Pressure : / mmHG Vent. Rate : 123 BPM Atrial Rate : 123 BPM P-R Int : 116 ms QRS Dur : 094 ms QT Int : 370 ms P-R-T Axes : 081 101 067 degrees QTc Int : 529 ms Sinus tachycardia. Right atrial enlargement Rightward axis Pulmonary disease pattern Marked ST abnormality, possible inferior subendocardial injury Abnormal ECG No previous ECGs available Unconfirmed Result
--- NOTE | 2019-09-20 08:41 | Diag Imaging Result Doc PS360 ---
CT HEAD W/O CONTRAST - 09/20/2019 INDICATION: follow up on [facility] COMPARISON: 09/19/2019 FINDINGS: There has been overall decrease in the small subarachnoid hemorrhage at the anterior right frontal lobe. There is no significant change in the small hemorrhage at the inferior right frontal lobe. No mass effect or midline shift. No new abnormalities. IMPRESSION: Improvement from prior. This exam was performed using automated exposure control, adjustment of mA or kV according to patient size, and/or use of iterative reconstruction technique Electronically signed by [place] 09/20/2019 8:39 AM
--- NOTE | 2019-09-20 08:51 | Diag Imaging Result Doc PS360 ---
EXAM: US RENAL 2 (RETROPER) COMPLETE INDICATION: el TECHNIQUE: COMPARISON: None. FINDINGS: The kidneys appear grossly normal in echotexture with no discrete renal mass or hydronephrosis. The right kidney measures 12.1 cm and the left kidney measures 12.2 cm in the greatest longitudinal axes. Right renal cortex measures 1.6 cm and the left renal cortex measures 1.5 cm in thickness. There is a Tse catheter in the urinary bladder. The bladder remains partially distended. It is grossly unremarkable, otherwise. IMPRESSION: Unremarkable renal ultrasound. Electronically signed by Baldemar Barnhart 09/20/2019 8:49 AM
[2019-09-20] MEDS: POTASSIUM CHLORIDE 20 MEQ/SWI 20 MEQ/100 ML IVPB IV SCH ×4 (09:05→23:57)
[2019-09-20] MEDS: KEPPRA 250 MG in NS 100 ML IV SCH ×2 (09:11→20:19)
--- NOTE | 2019-09-20 09:30 | NEUROLOGY CONSULTATION ---
DATE: 09/20/2019 Mr. Bryant is 34 years old and there is report of a recent witnessed seizure. History from the patient is that he does not remember being found at home and transported to the emergency room. By report, he was found with empty ethanol and OTC pill containers nearby. He, at this point, denies illicit drug use, drug intoxication, inappropriate drug ingestion, [id number] medication overdose, alcohol use. His report now is that the pill bottles and alcohol bottles found around him at home were a result of him "cleaning things out" and that he was not ingesting those. He reports having a seizure several years ago, single isolated episode by his report and he does not now recall being told an explanation for that. He does not know whether or not that episode was related to [id number] medicine ingestion, illicit drug use, other problem. He reports head injury with possible brief loss of consciousness a few weeks ago at a concert in [place]. He is not able to provide more details. He does not report history of prior head injury, stroke, other Neurologic event. His initial noncontrast CT here yesterday showed bilateral frontal subarachnoid blood. Followup CT scan this morning shows slight improvement. There is verbal unverified report that brain scan several years ago in [place] showed evidence of subarachnoid blood. He had initial temperature of 100.9 degrees but has been afebrile for the last 8 or 10 hours. Systolic blood pressures were initially 90s, then 120s to 150s after hydration. Heart rate was initially 120s, recently 70s. Lab included urine drug screen all negative. Sodium was 121 and improved to 127. BUN was 87 and improved to 76. Creatinine was 7.6 and improved to 4.6. Blood sugars have been stable in the 100s. Calcium was 7.4 and improved to 7.9. Phosphorus was 6.9 and improved to 4.9. Ethylene glycol level is pending. On exam, Mr. Bryant is awake, alert, attentive, and oriented to place. Speech is a little bit dysarthric and slow but easily understood. Language function is intact on brief bedside testing. When not vigorously stimulated with conversation, he seemed to drift back to sleep. There are ecchymoses over the tongue and lip. Tongue is midline. Facial motility is symmetric. When he is not completely alert, the right palpebral fissure is a little bit more narrow than the left but when he is alert and concentrating, that asymmetry is minimal. There is good lateral eye movement. Pupils react to light. He has symmetric power in the limbs. Limb tone is symmetric. Plantar response is flexor bilaterally. Proprioception is good at the great toe MTP joint bilaterally. He reports good pinprick appreciation over the limbs. I did not test his gait. Neck is supple. IMPRESSION: 1. Recent episode thought to be likely generalized seizure. If he had seizure, explanation is not certain. This may be related to substance ingestion and we may or may not know all of the potential substances ingested. He presented with negative drug screen and there would be some concern for ethanol or benzodiazepine withdrawal to account for seizure. He had some restlessness but I do not think clinical picture looks like benzodiazepine or ethanol withdrawal at this point. I will order an electroencephalogram and further plans will depend on that report and on his clinical course. We can continue current levetiracetam dose short term until workup is reported. 2. Possibility that he had previous seizure several years ago with uncertain explanation, possibly similar circumstances. If that history is confirmed, and depending on the circumstances of prior seizure, there may be indication to continue antiseizure medication longer term. 3. CT evidence of subarachnoid bleeding which appears improved today. There is report that there may have been similar finding on remote scan. He reports head injury several weeks ago. I am not at all certain that his history is reliable. We might get better history when he is more alert and then decide if further workup for intracranial bleeding is needed. Thanks for asking neurology to see Mr. Bryant. cc: MD NI Cortez III
[2019-09-20 09:46] LABS: HEMATOCRIT 40.3 % (42.0-52.0); HEMOGLOBIN 14.6 g/dL (14.0-18.0); MCH 31.5 PG (27-31); MCHC 36.2 g/dL (33-37); MCV 86.9 FL (81-99); MPV 10.7 FL (7.4-10.4); RBC 4.64 XMIL (4.7-6.1); RDW 13.8 % (11.5-14.5); WBC 9.29 X1000 (4.8-10.8)
--- NOTE | 2019-09-20 09:54 | PROGRESS NOTE ---
DATE: 09/20/2019 INTERVAL HISTORY: No acute events overnight. No reported seizure activity. His vitals were rather unremarkable. SUBJECTIVE: Mr. Bryant is drowsy and is not able to communicate in the history meaningfully. REVIEW OF SYSTEMS: Review of systems could not be obtained as the patient is drowsy. OBJECTIVE: Vital Signs: Temperature 98.8 degrees, pulse 79, respiratory rate 16, blood pressure 133/87, saturating 100% on 2 L nasal cannula. General: Not in acute distress. HEENT: Oral cavity is dry. There are flecks of blood adherent to lips. No pallor, cyanosis, clubbing, or icterus. Pupils are bilaterally equal, reacting to light. Lungs: Air entry bilaterally equal. No wheeze, rhonchi, crackles. Heart: S1, S2 normal. No murmur or gallop. Abdomen: Soft, nontender. Extremities: No lower extremity edema. He is in restraints, bilateral wrists. He has a urine catheter. He is moving all extremities spontaneously. Neurologic: He opens eyes, and he told me that he did not know why he was in the hospital. However, he lapses back into sleep again. LABORATORY DATA: No CBC today, which is pending. His ABG suggests hypercapnia, adequate oxygenation on nasal cannula. He continues to have hyponatremia, hypokalemia, hypochloremia. He has elevated anion gap, improving BUN and creatinine. MICROBIOLOGY: No positive data so far. Influenza screen was negative. IMAGING: Renal ultrasound did not have any acute pathology. Repeat head CT performed this morning has decrease in the subarachnoid hemorrhage at the anterior right frontal lobe, without any significant change, and at the inferior portion of the right frontal lobe, without any mass defects. Input and output suggest positive 450 mL. ASSESSMENT AND PLAN: 1. Acute encephalopathy due to uremia, subarachnoid hemorrhage, suspected ingestion of multiple medications including suspected chlorpheniramine, dextromethorphan, doxylamine, diphenhydramine, among others. Seizure leading to postictal confusion could also be a contributing factor. He is currently drowsy, but arousable. Repeat head CT does not suggest any mass effect. Continue to monitor him in intensive care unit. 2. Subarachnoid hemorrhage of unclear chronicity, without any evidence of head injury. He was not hypertensive on presentation either. Continue to monitor it, and will repeat head CT in the future. 3. Seizures in the emergency room in the setting of subarachnoid hemorrhage, as well as uremia, as well as ingestion of multiple [id number] medications. Continue intravenous Keppra, and appreciate Neurology recommendation. 4. Suspected sepsis of unclear etiology. His chest x-ray did not have pneumonia. Urinalysis did have pyuria. Follow up blood culture and urine culture results. Continue intravenous linezolid and intravenous Zosyn until final culture results come back. 5. Acute kidney injury with hyponatremia, hypochloremia, hypokalemia. There are some concerns over ethylene glycol poisoning, though the patient did not have metabolic acidosis on presentation. There were also reports of repeated vomiting, so intravascular volume depletion could be a cause. Continue intravenous normal saline and potassium repletion. Follow up repeat BMP. Appreciate Nephrology recommendations. 6. Acute hypoxic hypercapnic respiratory failure. Postprocedure, the patient did have hypoxia requiring nonrebreather mask, which has now improved. His hypercapnia could be related to persistent sedative effects of the medications he had ingested, including doxylamine diphenhydramine. Continue to monitor oxygen and mental status. 7. Suspected suicide attempt. There were reports that he took many tablets of ZzzQuil, Delsym, Benadryl, dextromethorphan. However, the history was incomplete. He may eventually need [facility] consultation when he is more awake. 8. Others. Continue to monitor him in intensive care unit. I will avoid chemical deep venous thrombosis prophylaxis considering his subarachnoid hemorrhage. TIME SPENT: 40 minutes of critical care time was spent in taking care of this patient. cc: Sunny Lopez MD [facility]
[2019-09-20] MEDS ORDERED: TYLENOL PR PRN (10:00)
--- NOTE | 2019-09-20 10:35 | EKG Report ---
Test Performed on : 09/20/2019 10:02:25 AM Test Reason : per poison control Blood Pressure : / mmHG Vent. Rate : 073 BPM Atrial Rate : 073 BPM P-R Int : 132 ms QRS Dur : 102 ms QT Int : 520 ms P-R-T Axes : 071 062 054 degrees QTc Int : 572 ms Normal sinus rhythm. Prolonged QT Abnormal ECG When compared with ECG of 20-SEP-2019 07:06, (Unconfirmed) No significant change was found Confirmed by Bobby Dudley MD ([id number]) on 09/21/2019 2:48:38 PM
--- NOTE | 2019-09-20 11:29 | NEPHROLOGY PROGRESS NOTE ---
DATE: 09/20/2019 SUBJECTIVE: He groans but does not follow commands or look at me. OBJECTIVE: Vital Signs: Blood pressure 142/88, heart rate 74, respirations 15, T-max 100.9 degrees. General: No acute distress. Skin: Warm and dry. HEENT: Conjunctivae are pink. Neck: Neck veins are not distended. Heart: Regular. No gallops. Lungs: Equal, shallow no crackles or wheezes. Abdomen: Soft, nontender. Bowel sounds are present. Extremities: No edema, clubbing or cyanosis. IMPRESSION/PLAN: Acute kidney injury. Good urine output. Creatinine has fallen from 9.5 on presentation to 4.6 this morning. He does have moderate hyponatremia and hypokalemia. He is receiving normal saline at 150 mL an hour following a 2 L normal saline bolus in the emergency room. I will make no changes to this. This should help address his sodium as well as acidosis. Anion gap is now 14. He is receiving potassium supplementation. cc: Maikel Bonilla MD
[2019-09-20] MEDS: ZYVOX 600 MG/D5W 600 MG/300 ML IVPB IV SCH (12:04)
[2019-09-20 15:35] LABS: CREATININE 2.7 mg/dL (0.7-1.2)
[2019-09-20 17:04] LABS: MPV 11.6 FL (7.4-10.4)
[2019-09-21] MEDS: ZYVOX 600 MG/D5W 600 MG/300 ML IVPB IV SCH (02:56)
[2019-09-21] MEDS: ZOSYN 2.25 GM in NS 50 ML IV SCH ×2 (02:58→11:33)
[2019-09-21] MEDS: NS 1,000 ML IV SCH ×4 (03:03→20:19)
[2019-09-21 07:12] LABS: HEMATOCRIT 31.1 % (42.0-52.0); MCH 31.3 PG (27-31); MCHC 35.4 g/dL (33-37); MCV 88.4 FL (81-99); MPV 10.7 FL (7.4-10.4); RBC 3.52 XMIL (4.7-6.1); RDW 13.6 % (11.5-14.5); WBC 3.91 X1000 (4.8-10.8)
[2019-09-21 07:13] LABS: ALB/GLOB RATIO 1.4; ALBUMIN 2.7 g/dL (3.5-5.0); CREATININE 1.6 mg/dL (0.7-1.2); PHOSPHORUS 1.2 mg/dL (2.7-4.5); POTASSIUM 2.9 mmol/L (3.5-5.1); TOTAL BILIRUBIN 0.95 mg/dL (0.20-1.00); TOTAL PROTEIN 4.6 g/dL (6.3-8.3)
--- NOTE | 2019-09-21 07:25 | EKG Report ---
Test Performed on : 09/21/2019 07:03:26 AM Test Reason : QTc monitoring Blood Pressure : / mmHG Vent. Rate : 064 BPM Atrial Rate : 064 BPM P-R Int : 114 ms QRS Dur : 096 ms QT Int : 528 ms P-R-T Axes : 042 037 034 degrees QTc Int : 544 ms Normal sinus rhythm. Prolonged QT Abnormal ECG When compared with ECG of 20-SEP-2019 10:02, (Unconfirmed) No significant change was found Confirmed by Bobby Dudley MD ([id number]) on 09/21/2019 3:00:35 PM
[2019-09-21] MEDS: KEPPRA 250 MG in NS 100 ML IV SCH ×2 (08:09→20:19)
--- NOTE | 2019-09-21 10:18 | EEG REPORT ---
DATE: 09/20/2019 REFERRING PHYSICIAN: Dr. Alysha Pate. TIP TESTER: Kelli Mcdermott. BACKGROUND INFORMATION/TECHNIQUE: This is a digitally recorded portable routine EEG with video. HISTORY: A 34-year-old, male patient admitted with a question of seizure, possible overdose, apparent subarachnoid hemorrhage. The EEG is ordered to detect evidence of seizures. MEDICATIONS: Include lorazepam. EEG FINDINGS: At times, a somewhat poorly-sustained 9 Hz posterior dominant alpha rhythm was seen in the occipital regions. At maximal alertness, the background consists of mixed alpha, beta, and some theta range frequencies. No definite persistent focal slowing. No epileptiform discharges. No seizures. Hyperventilation was not performed. Photic stimulation induces a normal driving response. The patient is drowsy or asleep for much of the study. The EKG demonstrates regular RR intervals. IMPRESSION AND CLINICAL CORRELATION: Abnormal routine EEG due to mild diffuse slowing suggestive of a mild nonspecific encephalopathy versus drowsiness. No epileptiform discharges or seizures seen on the current study. This does not rule out an underlying seizure disorder. The patient is drowsy or asleep for much of this study. cc: MD Alysha Askew III, MD
--- NOTE | 2019-09-21 12:38 | NEUROLOGY PROGRESS NOTE ---
DATE: 09/21/2019 SUBJECTIVE: Mr. Bryant is in the ICU bed 7. Mr. Bryant is alert today. He reports a little bit of headache, but not prominent. His history today varies from what he told me yesterday. Today, he reports no definite prior history of seizure. He reports several head injuries, sometimes associated with altered awareness or altered consciousness, and he believes the last of these was more than 1 year ago. He does not specifically recall being managed at [facility] with brain imaging showing intracranial bleeding in the past. He denies recent head injury. He does not recall circumstances leading to this admission. He does remember feeling bad and taking ZzzQuil, and he reports he had not used ZzzQuil in the past. He denies using illicit drugs, overdose with medicine, recent ethanol use. His course has been stable here. He has not had seizure recognized since just after presentation. His renal function continues to improve. Ethylene glycol level is pending. EEG showed slowing but no epileptiform discharge. He had temperature 100.3 degrees this morning, but otherwise has been afebrile for a few days. On exam, visual castellanos are full. The right palpebral fissure continues to measure about 1 mm narrower than the left. He has good eyelid movement bilaterally, good forehead wrinkling, symmetric lower facial motility, midline tongue, and good shoulder shrug. IMPRESSION AND PLAN: Recent possible generalized seizure, no definite history of any prior seizure based on his changed report today . Explanation for seizure is not certain, but still seems most likely related to ingestions. I would continue current levetiracetam dose short term and consider stopping that soon if current clinical course continues. If he is discharged with levetiracetam prescription, I will be glad to see him as an outpatient to follow that. Thanks for asking Neurology to see Mr. Bryant. cc: MD NI Cortez III
--- NOTE | 2019-09-21 13:53 | PROGRESS NOTE ---
DATE: 09/21/2019 SUBJECTIVE: This morning, Mr. Bryant refers to be doing well. Denies any new complaints. He said he does not really remember what happened at home. He said he just took some ZzzQuil because he just wanted to rest, but then does not remember what has happened. From the H and P, it appears that the patient was very aggressive and agitated at home. EMS was told that he took some heroin and methamphetamine, which he is denying at this point. They apparently found empty bottles of beer and wine in the room where he was found. It stated that he developed seizures that lasted for about 40 seconds prior to coming to the hospital. OBJECTIVE: Current Vital Signs: Blood pressure 104/56, pulse of 64, respirations are 17, temperature is 100.3 degrees. General Examination: Mr. Bryant is a 34-year-old, gentleman. He is in bed. No distress. HEENT: Mucosa is pink and moist. Anicteric. Acyanotic. Neck: Supple. Chest: Clear to auscultation. No crepitations. No rhonchi. Cardiovascular: Regular rate and rhythm. No murmurs, no rubs, no gallops. 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 Follows commands. No new complaints. Laboratory Data: WBC is down to 3.91, hemoglobin is 11.0, platelet count of 66,000. Chemistry is also reviewed. Creatinine is down to 1.6. ASSESSMENT: 1. Altered mental status on presentation secondary to global encephalopathy. 2. Subarachnoid hemorrhage of unclear etiology and chronicity. 3. Seizures in the emergency room, presumably due to medication-induced. 4. Acute kidney injury, improving. 5. Acute hypoxemic and hypercarbic respiratory failure, improved. 6. Questionable suicidal attempt. The patient denies any suicidal ideation at this point. 7. Pancytopenia, presumably from medications. PLAN: So far, blood cultures have been 48 hours negative. Chest x-ray is negative. We are going to discontinue the current antimicrobial coverage, Tse catheter. We will transfer Mr. Bryant from the ICU to the medical floor. cc: Joao Pena MD
--- NOTE | 2019-09-21 17:59 | NEPHROLOGY PROGRESS NOTE ---
DATE: 09/21/2019 SUBJECTIVE: He is talking today, taking p.o. medications, p.o. liquids. OBJECTIVE: Vital Signs: Blood pressure 120/65, heart rate 75, afebrile. Intake 5 L, output 1.6 L. General: No acute distress. Skin: Warm and dry. Neck: Neck veins are not appreciated. Heart: Regular. Lungs: Equal. No crackles. Abdomen: Soft, nontender. Normal bowel sounds. Extremities: No edema, clubbing or cyanosis. IMPRESSION: Acute kidney injury and acid-base disturbances. These things have resolved. He does have hypokalemia and this has been managed by the primary team. We will sign off. cc: Maikel Bonilla MD
[2019-09-22 05:34] LABS: HEMOGLOBIN 10.8 g/dL (14.0-18.0); MCH 31.7 PG (27-31); MPV 11.1 FL (7.4-10.4); RBC 3.41 XMIL (4.7-6.1); RDW 13.5 % (11.5-14.5); WBC 4.09 X1000 (4.8-10.8)
[2019-09-22 06:16] LABS: AGAP 10; ALB/GLOB RATIO 1.2; ALBUMIN 2.6 g/dL (3.5-5.0); ALKALINE PHOSPHATASE 37 U/L (32-122); BUN 21 mg/dL (8-22); CHLORIDE 97 mmol/L (98-107); COSMO 276; ESTIMATED GFR > 60; GLUCOSE 110 mg/dL (70-104); GOT 21 U/L (10-34); GPT 10 U/L (10-44); MAGNESIUM 1.6 mg/dL (1.5-2.7); POTASSIUM 2.7 mmol/L (3.5-5.1); SODIUM 136 mmol/L (136-145); TCO2 29 mmol/L (25-35); TOTAL BILIRUBIN 0.53 mg/dL (0.20-1.00); TOTAL PROTEIN 4.7 g/dL (6.3-8.3)
[2019-09-22 06:19] LABS: PHOSPHORUS 0.9 mg/dL (2.7-4.5)
[2019-09-22] MEDS: KEPPRA 250 MG in NS 100 ML IV SCH ×2 (08:22→20:34)
[2019-09-22] MEDS ORDERED: POTASSIUM PHOSPHATE 60 MEQ in NS 250 ML IV ONE (09:08)
--- NOTE | 2019-09-22 13:39 | NEUROLOGY PROGRESS NOTE ---
DATE: 09/22/2019 Mr. Bryant was initially asleep, awakened easily, remained alert and was more spontaneous today than when I saw him yesterday. He does not have any specific neurologic complaint today. Ethylene glycol level returned negative. Phosphorus was down to 0.9. Calcium is stable at 8.0. Magnesium 1.6. BUN is back to normal at 21. Creatinine is back to normal at 1.0 today. He continues afebrile for the last 24 hours. He provides new history to me today that he thinks he might have been told he had intracranial aneurysm several years ago, managed in [place]. He does not recall being told specifics about intracranial bleeding. He reports today he does not recall his presentation then, and specifically does not remember whether there was headache, altered consciousness, or neurologic deficit. Again, he reports no prior history of seizure today. I do not have any new thoughts or new suggestions from Neurology standpoint. We might consider repeating the noncontrast CT of the head electively to compare with last scan and see about the intracranial blood that was noted on initial scan. I do not think this is urgent. If there is history available from [facility] regarding management of neurologic event several years ago, that would be interesting, but would not change his management right now. Thank you for asking Neurology to see Mr. Bryant. cc: MD NI Cortez III
[2019-09-22] MEDS: NEUTRA-PHOS PO SCH ×3 (13:57→20:34)
--- NOTE | 2019-09-22 14:25 | PROGRESS NOTE ---
DATE: 09/22/2019 SUBJECTIVE: I have seen and examined Mr. Bryant today. He refers to be feeling tired but otherwise no new complaints. Denies any headaches and has not had any more seizures during the hospital course. OBJECTIVE: Vital signs: Blood pressure is 120/66, pulse of 81, respirations of 17, temperature of 98.2 degrees. The patient is saturating 99% on room air. General: Mr. Bryant is a 34-year- old gentleman. He is in bed, no distress. Mucosa is pink and moist. Anicteric. Acyanotic. Neck: Supple. Chest: Clear to auscultation. Cardiovascular: Regular rate and rhythm. GI/Abdomen: Soft. Bowel sounds present. BALLET TEACHER: Patient is awake, alert. Follows basic commands. LABORATORY DATA: Shows mild pancytopenia. The platelet count is, however, coming up. Chemistry is also reviewed. Potassium is 2.7, and phosphorus is 0.9. MICROBIOLOGY DATA: So far blood cultures have been 48 hours negative. MEDICATIONS: Have all been reviewed. No changes. ASSESSMENT: 1. Altered mental status on presentation secondary to global encephalopathy. 2. Subarachnoid hemorrhage of unclear etiology and chronicity. The patient is currently asymptomatic. 3. Seizures, witnessed in the emergency room. The patient is on Keppra. Has not had any more seizures during the hospital stay. 4. Acute kidney injury, resolved. 5. Electrolyte abnormality including hypokalemia and hypophosphatemia, replaced. 6. Hypoxemic and hypercarbic respiratory failure on presentation, resolved. 7. Pancytopenia, improving. 8. Questionable suicidal attempt. At this point patient denies any suicidal ideation. We have consulted [place] to evaluate him. In general, Mr. Bryant seems to be doing well. Denies any new complaints except for generalized tiredness. All his laboratory data has been reviewed. Seems to be getting better with pending [place] consult today. We will continue to replace his low electrolytes. cc: Joao Pena MD
[2019-09-22] MEDS: NS 1,000 ML IV SCH (16:45)
[2019-09-22] MEDS ORDERED: TYLENOL PO PRN (21:14)
[2019-09-23 05:47] LABS: HEMATOCRIT 29.9 % (42.0-52.0); HEMOGLOBIN 10.9 g/dL (14.0-18.0); MCH 31.6 PG (27-31); MCHC 36.5 g/dL (33-37); MCV 86.7 FL (81-99); MPV 10.3 FL (7.4-10.4); RBC 3.45 XMIL (4.7-6.1); RDW 13.6 % (11.5-14.5); WBC 5.32 X1000 (4.8-10.8)
[2019-09-23 05:55] LABS: AGAP 14; ALBUMIN 2.5 g/dL (3.5-5.0); BUN 11 mg/dL (8-22); CALCIUM 7.1 mg/dL (8.8-10.2); CHLORIDE 99 mmol/L (98-107); COSMO 277; CREATININE 0.8 mg/dL (0.7-1.2); ESTIMATED GFR > 60; GLUCOSE 106 mg/dL (70-104); PHOSPHORUS 2.2 mg/dL (2.7-4.5); POTASSIUM 3.2 mmol/L (3.5-5.1); SODIUM 139 mmol/L (136-145); TCO2 26 mmol/L (25-35)
[2019-09-23 07:50] VITALS: BP 135/80
[2019-09-23] MEDS: KEPPRA 250 MG in NS 100 ML IV SCH (09:23)
[2019-09-23] MEDS: NEUTRA-PHOS PO SCH ×2 (09:23→14:19)
--- NOTE | 2019-09-23 13:50 | NEUROLOGY PROGRESS NOTE ---
DATE: 09/23/2019 Mr. Bryant has been drowsy, sleeping a good bit. He does not have any specific complaint for me today. He is not having much headache now. He did not provide a new history today regarding prior head injury, intracranial bleeding, aneurysm, seizure, or other neurologic events. The history he has provided each of the last few days since admission has varied from day to day but there is nothing new from his standpoint today. In light of his stable course, I do not think we have to do anything urgently from a neurology standpoint. I will be glad to see him as an outpatient, if he needs neurology followup after discharge. Thanks for asking us to see him here. cc: Alysha Pate III, MD
--- NOTE | 2019-09-23 15:07 | DISCHARGE SUMMARY ---
ADMISSION DATE: 09/19/2019 DISCHARGE DATE: 09/23/2019 DISPOSITION: Home. FOLLOWUP: 1. Dr. Bonilla. 2. Dr. Pate. 3. [facility] Health [facility]. CONSULTATIONS DURING THIS ADMISSION: 1. Nephrology was consulted. Patient was seen by Dr. Bonilla. 2. Neurology was consulted. Patient was seen by Dr. Flowers and followed up by Dr. Pate. INVASIVE PROCEDURES DONE DURING THIS ADMISSION: None. IMAGING STUDIES OF SIGNIFICANCE: 1. A chest x-ray showed no acute pathology. 2. A CT scan of the head showed a small amount of acute blood at the anterior aspect of the frontal lobes and predominantly on the right. Most of this appears to be subarachnoid blood. 3. A CT scan of the abdomen and pelvis showed no acute disease. 4. A repeat CT scan of the head showed improvement from prior. 5. Ultrasound of the kidneys was unremarkable. ADMISSION DIAGNOSES: 1. Overdose of unknown substance. 2. Subarachnoid hemorrhage. 3. New onset seizures. 4. Acute kidney injury. 5. Transient respiratory failure. DIAGNOSES AT THE TIME OF DISCHARGE: 1. Altered mental status on presentation secondary to possible toxin/drug-induced encephalopathy. 2. Subarachnoid hemorrhage of unclear etiology and chronicity. This got improved on subsequent imaging. 3. Seizures witnessed in the emergency room, presumably drug-related. 4. Acute kidney injury, resolved. 5. Electrolyte abnormality including hypokalemia and hypophosphatemia, resolved. 6. Transient acute hypercarbic and hypoxemic respiratory failure on presentation, resolved. 7. Mild pancytopenia, improved. 8. Questionable suicidal ideation. Patient, however, denying this. He was screened by [facility] and has been advised to follow up with the mental health team. No need for acute psychiatric hospitalization. DISCHARGE MEDICATIONS: Levetiracetam 500 mg b.i.d. PRESENTING COMPLAINT: Altered mental status. HISTORY OF PRESENTING COMPLAINT: Mr. Bryant is a 34-year-old, male who was brought into the hospital after he was found very combative at home and aggressive. There were so many different versions of what he took. It had been documented that he had overdosed on Delsym and ZzzQuil. He also told EMS that he does heroin and methamphetamine. In any case, upon presenting to the emergency room, he had witnessed seizures. Poison Control was consulted as well as nephrology because he had a creatinine of 9.5. There was a concern that he also might have taking ethylene glycol, but that came back negative. HOSPITAL COURSE: Mr. Bryant was admitted to the critical care unit initially for close monitoring. He did not have any more seizures during the hospital course. He was evaluated by neurology. Mr. Bryant was also started on antibiotics, Zosyn and Zyvox, for possible pneumonitis, but these were discontinued since repeat chest x-ray was unremarkable and platelet count was also dropping. After that, platelet count got normalized. He was screened today by [place] and was determined not to be inpatient candidate. Mr. Bryant has also been seen on daily basis by neurology. His kidney function has recovered after adequate fluid resuscitation. We think he is now stable enough to be discharged today. All the discharge instructions have been discussed with him. He voiced understanding. Mr. Bryant did not have any more seizures during the hospital course. However, his CT scan shows some abnormalities and he keeps changing his history, so we think that it is reasonable to keep him on anticonvulsant, at least for now, and let him follow up with Dr. Pate on outpatient to be determined at a later date if he needs to continue that or a different approach will need to be adopted. Time spent for discharge is 35 minutes. cc: Joao Pena MD
== END 2019-09-23 18:17 | disposition home or self-care (01) | DRG 917 ==
LOC: ED 12:05 → SUATTDRO 20:12 → ICU 20:12 → 1N 09-21 17:44
PROVIDERS: ATTEND Internal Medicine